=== PATIENT | male | born 1960 | race African-American/Black ===

== ENCOUNTER 2016-07-29 15:29 | Emergency (ER) | payer SELFPAY ==
[~2016-07-29] VITALS: Ht 188 cm; Wt 100.0 kg
[~2016-07-29 15:29] MED LIST: BACTRIM DS1 TAB OR; BACTRIM DS1 TAB PO; CLINDAMYCIN150 MG OR; LORTAB 10 PO; MOTRIN600 MG OR; NAPROSYN500 MG PO; NO HOME MEDS; NO MEDS; OXYCODONE HCL5 MG PO; PENICILLN VK500 MG PO; ULTRAM50 MG OR; ULTRAM50 MG PO; [UNRECOGNIZED DRUG - OTHER] OR
[2016-07-29] MEDS ORDERED: FLEXERIL PO (16:32)
[2016-07-29] MEDS ORDERED: MOTRIN800 MG PO (16:32)
[2016-07-29 16:40] VITALS: BP 120/78
== END 2016-07-29 16:40 | disposition home or self-care (01) | DRG 552 ==
LOC: ED 15:29
DX: S16.1XXA Strain of muscle, fascia and tendon at neck level, initial encounter (principal); F17.210 Nicotine dependence, cigarettes, uncomplicated; V49.40XA Driver injured in collision with unspecified motor vehicles in traffic accident, initial encounter

== ENCOUNTER 2018-10-23 12:04 | Emergency (ER) | payer SELFPAY ==
[~2018-10-23] VITALS: Ht 188 cm; Wt 100.0 kg
[~2018-10-23 12:04] MED LIST changes: +FLEXERIL PO; +MOTRIN800 MG PO
[2018-10-23] MEDS ORDERED: KEFLEX500 M1 PO (12:48)
[2018-10-23] MEDS ORDERED: BACTRIM DS1 TAB PO (12:48)
[2018-10-23 12:55] VITALS: BP 122/87
== END 2018-10-23 12:55 | disposition home or self-care (01) | DRG 603 ==
LOC: ED 12:04
PROC: 0H9EXZZ Drainage of Left Lower Arm Skin, External Approach (ICD-10-PCS; principal; 2018-10-23)
DX: L02.414 Cutaneous abscess of left upper limb (principal); S50.862A Insect bite (nonvenomous) of left forearm, initial encounter; B95.62 Methicillin resistant Staphylococcus aureus infection as the cause of diseases classified elsewhere; F17.200 Nicotine dependence, unspecified, uncomplicated; W57.XXXA Bitten or stung by nonvenomous insect and other nonvenomous arthropods, initial encounter

== ENCOUNTER 2022-02-03 14:10 | Emergency (ER) | payer SELFPAY ==
[~2022-02-03] VITALS: Ht 188 cm; Wt 94.0 kg
[~2022-02-03 14:10] MED LIST changes: +KEFLEX500 M1 PO
[2022-02-03 14:19] VITALS: BP 116/83
[2022-02-03 14:30] VITALS: BP 131/77
[2022-02-03 14:45] VITALS: BP 120/80
[2022-02-03] MEDS ORDERED: CYCLOBENZAPRINE10 MG PO (16:02)
[2022-02-03] MEDS ORDERED: TRAMADOL HYDROC50 M1 PO (16:02)
[2022-02-03] MEDS ORDERED: NAPROXEN500 MG PO (16:02)
[2022-02-03 16:08] VITALS: BP 120/80
== END 2022-02-03 16:23 | disposition home or self-care (01) | DRG 914 ==
LOC: ED 14:10
DX: S39.92XA Unspecified injury of lower back, initial encounter (principal); F17.210 Nicotine dependence, cigarettes, uncomplicated; W01.0XXA Fall on same level from slipping, tripping and stumbling without subsequent striking against object, initial encounter; Y92.524 Gas station as the place of occurrence of the external cause